=== PATIENT | male | born 1945 | race Caucasian/White ===

== ENCOUNTER 2019-10-14 20:08 | Inpatient (IN) | payer MEDICARE ==
[2019-10-14] VITALS (50 sets, daily range): BP systolic 88; BP diastolic 60–65; PULSE 83–114; TEMP 98.5; O2SAT 92–100
[~2019-10-14] VITALS: Ht 182.9 cm; Wt 116.6 kg
[~2019-10-14 20:08] MED LIST: CATAPRES0.3 MG PO; DILANTIN 100MG100 MG PO; DOXYCYCLINE 10100 MG PO; FLEXERIL10 MG PO; KEPPRA 500MG500 MG PO; LASIX 20MG TABL20 MG PO; MOTRIN 800800 MG/TAB PO; NORVASC 10MG10 MG PO; PREDNISONE20 MG PO; PRINIVIL40 MG PO; PROAIR HFA0.09 MG/AC IH; TENORMIN 5050 MG/TAB PO; TRILEPTAL 300M300 MG PO; UNKNOWN BP MED; VICODIN 5/5001 UDTAB PO; VISTARIL50 MG PO; ZYLOPRIM 100MG100 MG PO; [UNRECOGNIZED DRUG - OTHER]
[2019-10-14 20:32] LABS: MEAN CELL VOLUME 91 fl (80.0-100.0); MEAN CORPUSCULAR HGB CONC 34 g/dl (33.0-37.0); MEAN PLATELET VOLUME 12.3 fl (7.4-10.4); PLATELET COUNT 122 K/mm3 (130-400); RED BLOOD COUNT 2.98 M/mm3 (4.20-5.60); REDCELL DISTRIBUTION WIDTH-CV 14.6 % (11.5-14.5)
[2019-10-14 20:34] LABS: COLLECTION METHOD IN
[2019-10-14 20:38] LABS: HEMATOCRIT 27.1 % (42.0-52.0); HEMOGLOBIN 9.1 g/dl (13.5-18.0); MEAN CORPUSCULAR HEMOGLOBIN 31 pg (27.0-31.0)
[2019-10-14 20:43] LABS: ALANINE AMINOTRANSFERASE 21 U/L (21-72); ALBUMIN 3.2 gm/dL (3.5-5.0); ALKALINE PHOSPHATASE 68 U/L (50-136); ANION GAP 11 mmol/L (7-16); AST,SGOT 15 U/L (15-37); BILIRUBIN,TOTAL 0.7 mg/dL (0.0-1.0); BLOOD UREA NITROGEN 54 mg/dL (9-20); CALCIUM 8.4 mg/dL (8.4-10.2); CARBON DIOXIDE 25 mmol/L (22-30); CHLORIDE 104 mmol/L (98-107); CREATINE KINASE 42 U/L (55-170); CREATININE, serum 3.18 (0.66-1.25); GLUCOSE 152 mg/dL (74-106); INR 1.2 (0.8-3.0); POTASSIUM 3.4 mmol/L (3.4-5.0); PROTHROMBIN TIME 14.6 SECONDS (9.7-12.8); SODIUM 140 mmol/L (137-145)
[2019-10-14 20:45] LABS: PARTIAL THROMBOPLASTIN TIME 32.6 SECONDS (26.0-37.0)
[2019-10-14 20:46] LABS: LIPASE < 10 U/L (23-300)
[2019-10-14 20:51] LABS: MUCOUS Present /lpf; PH 5 (5-8); SQUAMOUS EPITHELIAL 0-2 /hpf; URINE APPEARANCE Cloudy; URINE BACTERIA None Seen /hpf; URINE BILIRUBIN Negative (NEGATIVE); URINE BLOOD 2+ (NEGATIVE); URINE COLOR Amber; URINE GLUCOSE Negative (NEGATIVE); URINE KETONE Negative (NEGATIVE); URINE LEUKOCYTE ESTERASE Negative (NEGATIVE); URINE NITRATE Negative (NEGATIVE); URINE PROTEIN(semi-quant) 2+ (NEGATIVE); URINE UROBILINOGEN Negative (NEGATIVE)
[2019-10-14 20:55] LABS: TROPONIN-I < 0.012 ng/mL (0.000-0.035)
[2019-10-14 21:15] LABS: BAND 11 % (0-10); LYMPHOCYTE 2 % (20.0-51.0); METAMYELOCYTE 1 % (0-0); MYELOCYTE 3 % (0-0); NEUTROPHILS 79 % (42.0-75.2)
[2019-10-14 21:16] LABS: OVALOCYTES 1+; PLATELET ESTIMATE DECREASED (NORMAL); POIKILOCYTOSIS 1+
[2019-10-14] MEDS ORDERED: TOPROL XL 50MG50 MG PO (21:40)
--- NOTE | 2019-10-14 23:21 | NUR ---
PT RECEIVED FROM ER WITH LEVOPHED RUNNING AT 0.13 MCG/KG/MIN. TITRATED PER ORDER AT THIS TIME, SEE DOCUMENTATION.
[2019-10-15] VITALS (1222 sets, daily range): BP systolic 77–122; BP diastolic 40–86; PULSE 91–123; TEMP 98.4–99.8; O2SAT 72–100
[2019-10-15 01:30] LABS: ARTERIAL BLD GAS O2 SATURATION 92.5 % (92-100); ARTERIAL BLD GAS TCO2 CT 20.6; ARTERIAL BLOOD GAS HCO3 19.5 meq/L (22-26); ARTERIAL BLOOD GAS PCO2 34.3 mmHg (35-45); ARTERIAL BLOOD GAS PO2 65.3 mmHg (80-100); ARTERIAL BLOOD GAS pH 7.37 (7.35-7.45)
[2019-10-15 01:41] LABS: PHOSPHOROUS 4.2 mg/dL (2.5-4.5)
[2019-10-15 02:12] LABS: TSH w REFLEX 0.946 uIU/mL (0.465-4.680)
[2019-10-15 04:06] LABS: MEAN CELL VOLUME 91 fl (80.0-100.0); MEAN CORPUSCULAR HGB CONC 34 g/dl (33.0-37.0); MEAN PLATELET VOLUME 11.7 fl (7.4-10.4); PLATELET COUNT 157 K/mm3 (130-400); RED BLOOD COUNT 3.23 M/mm3 (4.20-5.60); REDCELL DISTRIBUTION WIDTH-CV 14.8 % (11.5-14.5)
[2019-10-15 04:08] LABS: HEMATOCRIT 29.3 % (42.0-52.0); HEMOGLOBIN 9.9 g/dl (13.5-18.0); MEAN CORPUSCULAR HEMOGLOBIN 31 pg (27.0-31.0)
[2019-10-15 04:12] LABS: INR 1.3 (0.8-3.0); PROTHROMBIN TIME 15.8 SECONDS (9.7-12.8)
[2019-10-15 04:20] LABS: ALBUMIN 2.9 gm/dL (3.5-5.0); BILIRUBIN,TOTAL 0.7 mg/dL (0.0-1.0); CALCIUM 7.9 mg/dL (8.4-10.2); CREATININE, serum 3.07 (0.66-1.25); POTASSIUM 3.5 mmol/L (3.4-5.0); TOTAL PROTEIN 5.7 gm/dL (6.4-8.2)
[2019-10-15 04:25] LABS: CREATININE, serum 3.07 (0.66-1.25); FRACTIONAL EXCRETION OF NA+ 0.2 %
[2019-10-15 04:32] LABS: BAND 32 % (0-10); METAMYELOCYTE 1 % (0-0); NEUTROPHILS 59 % (42.0-75.2); PLATELET ESTIMATE NORMAL (NORMAL)
--- NOTE | 2019-10-15 06:37 | NUR ---
Vancomycin Initial Dosing Pharmacy Note Ordering provider: Jonathan Rosenberg MD Indication/duration: colitis, 7 days LABS: SCr 3.07, CrCl~24, GFR 20 Recommendation: Will continue Vancomycin 1.5 gm IV q24h and check a Vancomycin trough prior to 4th total dose on 10/18/19. Pharmacy will continue to monitor. Loading dose: 2 grams Maintenance dose: 1.5 grams every 24 hours Trough goal: 15-20 ug/mL
--- NOTE | 2019-10-15 07:25 | NUR ---
4 MG CONCENTRATION DISCONTINUED. 8 MG CONCENTRATION STARTED.
--- NOTE | 2019-10-15 07:26 | NUR ---
DOUBLE CONCENTRATION 8 MG STARTED.
--- NOTE | 2019-10-15 07:46 | NUR ---
2245 - RECEIVED REPORT FROM RILEY LAY. 2300 - PT ARRIVED IN UNIT VIA STRETCHER ESCORTED BY RN, ALERT AND ORIENTED X 4, ON O2 AT 6L VIA OXYMASK. PT COMPLAINS OF PAIN 10/10 IN THE ABDOMEN. PT ON LEVOPHED UPON ARRIVAL AT 0.13 MCG/KG/MIN, NS AND LEVOFLOXACIN. DR. RUBIN ALSO CALLED AND ON HIS WAY TO PLACE A CENTRAL LINE. 2350 - DR. VARELA AT BEDSIDE FOR CENTRAL LINE PLACEMENT. 2355 - TIMEOUT FOR CENTRAL LINE PLACEMENT. 0010 - CENTRAL LINE PROCEDURE STARTED. 0012 - XRAY CALLED FOR VERIFICATION. 0020 - CENTRAL LINE PLACED AT [facility], XRAY DONE AND DR. VARELA GAVE OKAY TO USE LINE. 0130 - PT CONVERTED TO AFIB, STAT EKG ORDERED AND CONFIRMED RHYTHM. 0225 - PT OUT FOR CT SCAN OF HEAD AND NECK ESCORTED BY THIS RN. 0250 - PT BACK IN UNIT FROM CT SCAN. 0409 - WBC OF 29.3 REPORTED TO ANDERSON VO AND E CARE. 0430 - HEPARIN STARTED, NO BOLUS GIVEN PER ORDER. 0730 - REPORT GIVEN TO RILEY CHENG.
--- NOTE | 2019-10-15 10:50 | NUR ---
Initial visit; Family thanked Manager Transport for looking in on Nicolás and letting them know of the availabiity of Holy Communion for patient and the presence of Spiritual Care.
[2019-10-15 12:19] LABS: URINE PROTEIN:CREAT RATIO 0.14 (0.00-0.14)
--- NOTE | 2019-10-15 19:14 | NUR ---
Report given to Florence LIN
--- NOTE | 2019-10-15 20:00 | NUR ---
PT GETTING CONFUSED ANG AGITATED, KEEPS TRYING TO GET OUT OF BED AND VERBALIZING WANTING TO PEE. PT REORIENTED AND REMINDED THAT HE HAS A HICKEY, NO SUCCESS AND PT STILL CONFUSED DESPITE EXPLANATION. AND SON AT BEDSIDE, ADVISED TO LET PT REST TONIGHT TO DECREASE STIMULATION WELL, AND SON AGREED WITH PLAN. GENERAL DENTIST OUTSIDE ROOM, ORDERED ATIVAN AND WAS GIVEN. GENERAL DENTIST ALSO ORDERED AMIODARONE PT'S HR AT 140-150'S, AND WAS GIVEN ORDERED.
[2019-10-16] VITALS (1111 sets, daily range): BP systolic 67–140; BP diastolic 23–117; PULSE 89–140; TEMP 97.5–99.5; O2SAT 50–100
--- NOTE | 2019-10-16 01:20 | NUR ---
2100 - PT AGITATED AND CONFUSED, KEEPS WANTING TO GET OUT OF BED AND PULLING ALL HIS LINES, ORDER PULLER TAVO CONTACTED AND ORDERED ANOTHER 0.5 MG OF ATIVAN. THIS AIR SAMPLING AND MONITORING THEN WENT AWAY TO GET THE MEDICATION AND WHEN I CAME BACK TO PT'S ROOM, HE WAS TRYING TO PULL HIS CENTRAL LINE AND GOT ALL THE DRESSING OFF ALREADY. MITTS WAS PUT ON AND CENTRAL LINE DRESSING CAHNGED.
--- NOTE | 2019-10-16 01:23 | NUR ---
PT STILL RESTLESS, KEEPS TRYING TO TAKE MITTS OFF AND BITING IT. SEVERAL REDIRECTION ATTEMPTED WITH NO SUCCESS. BED ALARM ON. WILL CONTINUE CLOSE MONITORING.
--- NOTE | 2019-10-16 01:33 | NUR ---
E CARE UPDATE REGARDING PT HE IS SO RESTLESS, APPEARS TO BE TIRED AND HAS SOME HEAVY BREATHING. ATIVAN NOT AVAILABLE 314, E CARE AWARE. AWAITING FOR RESPONSE.
--- NOTE | 2019-10-16 02:12 | NUR ---
0145 - DR. BROOKS ON [place] TO ASSESS PT AND ORDERED PRECEDEX.
--- NOTE | 2019-10-16 02:29 | NUR ---
ORDER PUT IN FOR PRECEDEX AND DR. DOYLE NOTIFIED.
--- NOTE | 2019-10-16 04:19 | NUR ---
GI PANEL RESULTED POSITIVE FOR C DIFF, RESULTS REPORTED TO E CARE. PT PUT ON CONTACT ISOLATION PRECAUTION.
--- NOTE | 2019-10-16 04:37 | NUR ---
PT'S , TATE CALLED AND UPDATED. ALL QUESTIONS ANSWERED.
--- NOTE | 2019-10-16 04:49 | NUR ---
DR. BROOKS CALLED WITH REGARDS TO PT BEING POSITIVE FOR C DIFF AND WILL INCREASE FLAGYL TO Q8 AND WILL ADD VANCOMYCIN PO.
[2019-10-16 05:48] LABS: HEMOGLOBIN 11.8 g/dl (13.5-18.0); MEAN CELL VOLUME 88 fl (80.0-100.0); MEAN CORPUSCULAR HEMOGLOBIN 30 pg (27.0-31.0); MEAN CORPUSCULAR HGB CONC 34 g/dl (33.0-37.0); MEAN PLATELET VOLUME 11.9 fl (7.4-10.4); PLATELET COUNT 198 K/mm3 (130-400); RED BLOOD COUNT 3.88 M/mm3 (4.20-5.60); REDCELL DISTRIBUTION WIDTH-CV 14.9 % (11.5-14.5)
[2019-10-16 05:50] LABS: HEMATOCRIT 34.3 % (42.0-52.0)
[2019-10-16 05:52] LABS: INR 1.4 (0.8-3.0); PROTHROMBIN TIME 16.2 SECONDS (9.7-12.8)
[2019-10-16 05:57] LABS: ALBUMIN 2.6 gm/dL (3.5-5.0); BILIRUBIN,TOTAL 0.9 mg/dL (0.0-1.0); CALCIUM 7.6 mg/dL (8.4-10.2); CREATININE, serum 3.63 (0.66-1.25); POTASSIUM 4.2 mmol/L (3.4-5.0); TOTAL PROTEIN 5.4 gm/dL (6.4-8.2)
[2019-10-16 06:48] LABS: BAND 42 % (0-10); LYMPHOCYTE 4 % (20.0-51.0); NEUTROPHILS 45 % (42.0-75.2); PLATELET ESTIMATE NORMAL (NORMAL)
--- NOTE | 2019-10-16 06:52 | NUR ---
0550 - WBC OF 37.4 REPORTED TO E CARE. 0620 - THIS RN TALKED TO PHARMACY REGARDING VANCOMYCIN AND GI PANEL MIGHT JUST SHOW COLONIZATION CONSIDERING PT WAS ON CLINDAMYCIN A MONTH AGO AND NOT CURRENTLY HAVING LOOSE/WATERY STOOLS, PT MIGHT NOT NEED ORAL VANCOMYCIN. PHARMACIST ROMERO WILL CALL ME BACK ONCE SHE CONSULTS EVA. FOR NOW, PHARMACIST OKAYED FOR ME TO GIVE CURRENT VANCOMYCIN IV AND SHE WILL ALSO CHANGE ORDER OF VANCOMYCIN CAPSULE TO ORAL SOLUTION. WILL PASS THIS ALONG TO ONCOMING DAY SHIFT NURSE.
--- NOTE | 2019-10-16 08:10 | NUR ---
UPON ASSESSMENT I HAD NOTICED PATIENT'S RIGHT NECK NEAR CENTRAL LINE WAS VERY EDEMATOUS EXTENDING INTO RIGHT CLAVICLE AND RIGHT POSTERIOR NECK. DIRECTOR CLIENT NURSE HAD REPORTED PATIENT HAD GRABBED CENTRAL LINE AND PULLED DRESSING OFF DURING THE NIGHT. DR DOYLE PRESENT AND MADE AWARE. STAT CHEST XRAY ORDERED TO VERIFY LINE PLACEMENT. XRAY VERIFIED THAT CENTRAL LINE TIP IS NOW AT THE RIGHT SUBLCAVIAN. DR VARELA CALLED AND NOTIFIED. PROVIDER COMING IN TO REPOSITION AND/OR PLACE NEW LINE.
--- NOTE | 2019-10-16 08:43 | NUR ---
Due to the patient's condition, [facility] student met with the patient's , Ju to complete the initial intake. The patient's was teary eyed as we spoke. She states that two of her three kids will come to [place] from out of state to provide support to her. The patient lives in [place] with Ju. The patient uses a wheelchair as a walker to ambulate at times but mostly uses as cane as needed. Prior to this hospitalization the patient was independent with ADLs. The patient's PCP is Dr. Marion and patient recieves medications via mail but if needed will use [employer] The patient does not have advanced directives in the EMR. business services vice president will continue to follow to ensure a safe discharge.
--- NOTE | 2019-10-16 09:30 | NUR ---
DR VARLEA PRESENT. PROVIDER EXCHANGED CENTRAL LINE TO RIGHT IJ USING STERILE TECHNIQUE. PLACEMENT VERIFIED WITH XRAY
--- NOTE | 2019-10-16 13:04 | NUR ---
16F NGT INSERTED TO RIGHT NARES. GASTRIC CONTENTS OBTAINED UPON INSERTION. XRAY ORDERED FOR PLACEMENT VERIFICATION. UPON INSERTION PATIENT BEGAN HAVING COFFEE GROUND/BLACK GASTRIC CONTENTS. TUBING SECURED AT 65CM. DR KHALIL CALLED TO NOTIFY
--- NOTE | 2019-10-16 13:15 | NUR ---
DR HUGHES NOTIFIED OF PATIENT'S BLACK/COFFEE GROUND EMESIS. HEPARIN GTT STOPPED. ALSO NOTIFIED DR HUGHES THAT PATIENT'S BP HAS BECOME UNSTABLE AND I AM HAVING IN INCREASE GTT REGULARLY. SBP IN 60-70.
--- NOTE | 2019-10-16 13:30 | NUR ---
DR HUGHES AND DR SMYTH PRESENT TO ASSESS PATIENT.
--- NOTE | 2019-10-16 13:30 | NUR ---
CALLED AND NOTIFIED THAT PATIENT'S STATUS HAS RAPIDLY DECLINED IN PAST HOUR. PATIENT STATES SHE IS ON HER WAY BACK TO HOSPITAL.
--- NOTE | 2019-10-16 13:55 | NUR ---
PT'S HAS RETURNED. I HAVE UPDATED HER ON PATIENT'S STATUS THAT HIS BP KEEPS DECLINING EVEN WITH INCREASING THE AMOUNT OF LEVOPHED. DR HUGHES AND DR SMYTH ARE ON THEIR WAY TO SPEAK WITH PATIENT.
[2019-10-16 14:11] LABS: HEMOGLOBIN 11.3 g/dl (13.5-18.0)
[2019-10-16 14:14] LABS: HEMATOCRIT 32.9 % (42.0-52.0)
--- NOTE | 2019-10-16 14:54 | NUR ---
DR HUGHES AND LIBRA DISCUSSED PLAN OF CARE WITH PATIENT'S . WOULD LIKE TO SPEAK WITH CHILDREN BEFORE MAKING ANY DECISIONS AT THIS TIME.
--- NOTE | 2019-10-16 14:59 | NUR ---
PRECEDEX GTT STOPPED D/T UNSTABLE BP.
--- NOTE | 2019-10-16 15:03 | NUR ---
PRECEDEX GTT RESUMED D/T AGITATION. PT ATTEMPTING TO GET OUT OF BED AND PULL OFF MITTS WELL NGT.
[2019-10-16 21:11] LABS: HEMATOCRIT 36.5 % (42.0-52.0); HEMOGLOBIN 12.4 g/dl (13.5-18.0)
[2019-10-17] VITALS (46 sets, daily range): BP systolic 98–114; BP diastolic 64–77; PULSE 121; TEMP 97.8; O2SAT 58–98
--- NOTE | 2019-10-17 04:27 | NUR ---
At 0332, [employer] notified this RN that PT HR dropped to the 40's. ANDERSON Hammond notified while I went to the room immediately after being notified. Immediately went to bedside and noted the patient to be apneic, monitor showed HR in the low 40's. Multiple staff members checking for pulse, none felt. ANDERSON Hammond called the PT's , Marie to notify her of the situation and that we were looking for a pulse via doppler. No pulse heard or palpated. notified that patient had passed. Time of 335. PT family at beside at 0350. Condolences offered, explained the events leading up to the passing of the patient. Family selected [facility] in [place], [place]. [employer] plant supervisor contacted and made arrangements.
--- NOTE | 2019-10-17 11:36 | NUR ---
The patient at 335 this day. Staff at that time assisted family. There are no additional needs.
== END 2019-10-17 05:16 | disposition expired | DRG 871 ==
LOC: COL.ER 20:08 → ICU 22:22
PROVIDERS: Emergency Medicine; Hospitalist; Nurse Practitioner Family; ADMIT Student in an Organized Health Care Education/Training Program
PROC: 02HV33Z Insertion of Infusion Device into Superior Vena Cava, Percutaneous Approach (ICD-10-PCS; principal; 2019-10-14)
PROC: 02HV33Z Insertion of Infusion Device into Superior Vena Cava, Percutaneous Approach (ICD-10-PCS; 2019-10-16)
DX: A41.9 Sepsis, unspecified organism (principal); R65.21 Severe sepsis with septic shock; J96.01 Acute respiratory failure with hypoxia; N17.9 Acute kidney failure, unspecified; K55.9 Vascular disorder of intestine, unspecified; G93.40 Encephalopathy, unspecified; I50.22 Chronic systolic (congestive) heart failure; G40.909 Epilepsy, unspecified, not intractable, without status epilepticus; K37 Unspecified appendicitis; I45.10 Unspecified right bundle-branch block; Z66 Do not resuscitate; I48.91 Unspecified atrial fibrillation; I10 Essential (primary) hypertension; K59.00 Constipation, unspecified; E87.6 Hypokalemia; D69.6 Thrombocytopenia, unspecified; G47.00 Insomnia, unspecified; E11.40 Type 2 diabetes mellitus with diabetic neuropathy, unspecified; E86.0 Dehydration; G20 Parkinson's disease
CPT/HCPCS: 99223-AI; 99239; A4216; C9113; J0282; J0692; J1644; J1956; J2060; J3370; J3480; J7030; J7040; J7050; J7060; J7120